=== PATIENT | male | born 1965 | race Hispanic/Latino ===

== ENCOUNTER → 2021-01-05 01:25 | Outpatient (CLI) | payer BC, SELFPAY ==
[2021-01-05 19:34] LABS: SARS-CoV-2 RNA PCR Negative
== END ==
PROVIDERS: PCP Internal Medicine; Visit Provider Surgery Plastic and Reconstructive Surgery
DX: Z01.812 Encounter for preprocedural laboratory examination (principal); Z20.822 Contact with and (suspected) exposure to COVID-19
CPT/HCPCS: C9803; U0003; U0005

== ENCOUNTER 2021-01-08 00:09 | Day surgery (SDC) | payer BC, SELFPAY ==
[2021-01-01 09:14] VITALS: BMI 28.7
--- NOTE | 2021-01-08 09:13 | ECG_ITS ---
Measurements Intervals [place] Rate: 56 P: 18 [place]: 195 QRS: -37 QRSD: 161 T: -14 QT: 432 QTc: 417 Interpretive Statements SINUS BRADYCARDIA LEFT AXIS DEVIATION RIGHT BUNDLE BRANCH BLOCK VOLTAGE CRITERIA FOR LVH BASELINE WANDER- AVF ABNORMAL ECG Electronically Signed On 01-08-2021 10:50:59 CDT by Karl Braga D.O.
[2021-01-08 10:16] VITALS: BP 141/79; PULSE 69; RESP 18; TEMP 36.6; O2SAT 99; BMI 27.8
--- NOTE | 2021-01-08 10:38 | WPDANESEPPF ---
Anes - Initial Pre Proc Eval Procedure: Operation Date: 01/08/21 11:30 Proposed Procedures p Excision Back Mass - Marty Sandoval MD Date/Time: 01/08/21 10:38 Surgeon: Marty Sandoval MD Pre Op Diagnosis: Back Mass Patient Data Age: 55 Gender: M Height: 6 ft Weight: 93 kg Last Vital Signs Temp 36.6 C 01/08/21 10:16 Pulse 69 01/08/21 10:16 Resp 18 01/08/21 10:16 BP 141/79 H 01/08/21 10:16 Pulse Ox 99 01/08/21 10:16 Allergies Allergy/AdvReac Type Severity Reaction Status Date / Time No Known Allergies Allergy Verified 01/08/21 10:09 Home Medications Medication Instructions Recorded Confirmed Type ergocalciferol (vitamin D2) 1,250 mcg PO WE 01/01/21 01/08/21 History icosapent ethyl [Vascepa] 1 g PO DAILY 01/01/21 01/08/21 History nebivolol [Bystolic] 20 mg PO DAILY 01/01/21 01/08/21 History Patient hx anesthesia problems: none Family hx anesthesia problems: none PMFSH Past Medical History Medical History Essential (primary) hypertension Lipoma of back Mixed hyperlipidemia Obstructive sleep apnea Type 2 diabetes mellitus without complication, without long-term current use of insulin Surgical History Surgical History History of hernia repair History of sinus surgery Social History Social History Smoking status: Never smoker Second hand tobacco smoke exposure: No Alcohol intake: never Living arrangements: alone Gender identity (if verbalized by the patient): Male Spiritual care concerns: No Anes - Eval Final PreProcedure Day of Procedure 01/08/21 10:38 Patient weight: overweight Heart: regular rate and rhythm Lungs: clear to auscultation Airway: Mallampati scale class II Neurological: alert and oriented Last oral intake: >/= 8 hours ASA classification: III Emergent: no Anesthetic plan: proceed Anesthesia type and monitoring: general LMA and standard monitoring Informed Consent: The patient's anesthetic plan and its attendant risks and benefits were discussed with the patient/family/POA. Questions were solicited and answers provided to the satisfaction of the patient/family/POA.
[2021-01-08] MEDS: LACTATED RINGERS 1,000 ML 30 ML IV CONT ×2 (10:40→12:20)
--- NOTE | 2021-01-08 10:56 | WPDHPUPDATE1 ---
History and Physical Update Update Date/Time: 01/08/21 10:56 History and Physical has been reviewed, including an updated exam of the patient. There are NO changes in the patient's condition. Risks, benefits, and alternatives have been discussed and questions answered. Patient agrees to proceed with procedure.
--- NOTE | 2021-01-08 11:19 | P.OP_ITS ---
Procedure Note - Detailed Date of procedure: 01/08/21 Pre-op diagnosis: Back Mass Post-op diagnosis: same Procedure performed: Excision subcutaneous mass right midback intramuscular 6.5cm Closure subcutaneous mass right midback intramuscular 6.5cm Description of procedure: Patient was marked in the preoperative holding area with his verification. Risks, benefits, alternatives were discussed in extensive detail. I want him to be very realistic about the risks involved as well as expectations. Made sure answered all of his questions to his satisfaction. Consent obtained. Patient was taken to the operating room. Anesthesia provided by anesthesiology he was placed in the lateral decubitus position and prepped and draped in a standard sterile fashion. Surgical time-out was taken. 1% lidocaine with epinephrine was used anesthetize locally. Fifteen blade used to make an incision over the mass. Dissection was continued down and muscle fibers were splitbut not cut. This continued until it was identified. This was completely removed under direct visualization with no evidence of neurovascular or other structure injury. I closed first repairing the muscle with 2-0 Vicryl then in many layers to obliterate all space u sing 2-0 Vicryl followed by 3-0 Monocryl in a running subcuticular 4-0 Monocryl and tissue glue. Dressings were placed. He was awoke and taken to the PACU without difficulty. All instrument sponge counts were correct at the end of the case. Anesthesia: GLMA Surgeon: Marty Sandoval MD Estimated blood loss (mL): 5 Drains: No Packing: No Pathology: yes (Subcutaneous right midback mass) Complications: No immediate complications Condition: stable Disposition: PACU Findings: Intramuscular with apperance of lipoma 6.5cm.
[2021-01-08] MEDS: LIDO 1%/EPINEPHRINE 1:100,000 50 ML VIAL 10 ML INFILTRATE (11:53)
[2021-01-08 12:25] VITALS: BP 149/85; PULSE 70; RESP 20; TEMP 36.7; O2SAT 99
[2021-01-08 12:40] VITALS: BP 129/69; PULSE 65; RESP 16; O2SAT 98
[2021-01-08 12:55] VITALS: BP 124/71; PULSE 61; RESP 20; O2SAT 96
[2021-01-08 13:10] VITALS: BP 126/70; PULSE 57; RESP 16
[2021-01-08 13:39] VITALS: BP 121/73; PULSE 59; RESP 16
== END 2021-01-08 13:54 | disposition home or self-care (01) ==
PROVIDERS: PCP Internal Medicine; Visit Provider Surgery Plastic and Reconstructive Surgery
PROC: (CPT 21933; principal; 2021-01-08 11:30)
DX: D17.1 Benign lipomatous neoplasm of skin and subcutaneous tissue of trunk (principal); I10 Essential (primary) hypertension; E78.2 Mixed hyperlipidemia; E11.9 Type 2 diabetes mellitus without complications; G47.33 Obstructive sleep apnea (adult) (pediatric)
CPT/HCPCS: 21933; 88304; 93005; J1100; J2250; J2370; J2405; J2704; J3010; J7120